=== PATIENT | female | born 1965 | race Caucasian/White ===

== ENCOUNTER 2023-06-22 08:55 | Outpatient (OUT) | payer BC, SELFPAY ==
--- NOTE | 2023-06-22 09:05 | MM_ITS ---
Patient Name: DORIS AVALOS MR#: [id number] : 1965 Exam Date: 06/22/2023 Ordering Doctor: DR RIVKA ROBERT D.O. RADIOLOGY REPORT PROCEDURE: MM TOMOSYNTHESIS SCREENING BI COMPARISON: MG MAMM SCREEN 3D IRIS CAD, 06/21/2022. MG MAMM SCREEN 3D IRIS CAD, 06/18/2021. MG MAMM SCREEN IRIS W CAD, 06/15/2020. MG MAMM IRIS SCRN W CAD DIG, 04/16/2013. INDICATIONS: Screening Calculator Name NCI Breast Cancer Risk Assessment Tool 5 Year Breast Cancer Risk 1.20% Lifetime Breast Cancer Risk 7.90% Personal Breast Cancer No Personal Ovarian Cancer No Treatments None Family Cancers None LOCATION: [facility] BREAST COMPOSITION: Scattered areas fibroglandular density. FINDINGS: DIAGNOSTIC CATEGORY 2--BENIGN FINDING: RIGHT BREAST: No significant suspicious finding. Stable benign-appearing lymph node. No significant change has occurred. LEFT BREAST: No significant suspicious finding. No significant change has occurred. RECOMMENDATIONS: ROUTINE MAMMOGRAM AND CLINICAL EVALUATION IN 12 MONTHS. PLEASE NOTE: A NORMAL MAMMOGRAM DOES NOT EXCLUDE THE POSSIBILITY OF BREAST CANCER. A CLINICALLY SUSPICIOUS PALPABLE LUMP SHOULD BE BIOPSIED. Dictated by: Shun Pinzon M.D. on 06/22/2023 at 12:09 Approved by: Shun Pinzon M.D. on 06/22/2023 at 12:11
== END 2023-06-22 08:56 | disposition home or self-care (01) ==
LOC: MAMMO 08:55
PROVIDERS: PCP Internal Medicine; Visit Provider Internal Medicine
DX: Z12.31 Encounter for screening mammogram for malignant neoplasm of breast (principal)
CPT/HCPCS: 77063; 77067

== ENCOUNTER 2024-06-28 11:36 | Outpatient (OUT) | payer BC, SELFPAY ==
--- NOTE | 2024-06-28 11:39 | MM_ITS ---
Patient Name: DORIS AVALOS MR#: [id number] : 1965 Exam Date: 06/28/2024 Ordering Doctor: DR RIVKA ROBERT D.O. RADIOLOGY REPORT PROCEDURE: MM TOMOSYNTHESIS SCREENING BI COMPARISON: MM TOMOSYNTHESIS SCREENING BI, 06/22/2023. MG MAMM SCREEN 3D IRIS CAD, 06/21/2022. MG MAMM SCREEN 3D IRIS CAD, 06/18/2021. MG MAMM IRIS SCRN W CAD DIG, 04/16/2013. INDICATIONS: Screening Calculator Name NCI Breast Cancer Risk Assessment Tool 5 Year Breast Cancer Risk 1.30% Lifetime Breast Cancer Risk 7.70% Personal Breast Cancer No Personal Ovarian Cancer No Treatments None Family Cancers None LOCATION: [facility] BREAST COMPOSITION: There are scattered areas of fibroglandular density. FINDINGS: DIAGNOSTIC CATEGORY 1--NEGATIVE. RIGHT BREAST: No significant suspicious finding. No significant change has occurred. LEFT BREAST: No significant suspicious finding. No significant change has occurred. RECOMMENDATIONS: ROUTINE MAMMOGRAM AND CLINICAL EVALUATION IN 12 MONTHS. PLEASE NOTE: A NORMAL MAMMOGRAM DOES NOT EXCLUDE THE POSSIBILITY OF BREAST CANCER. A CLINICALLY SUSPICIOUS PALPABLE LUMP SHOULD BE BIOPSIED. Dictated by: Shun Pinzon M.D. on 07/01/2024 at 15:30 Approved by: Shun Pinzon M.D. on 07/01/2024 at 15:35
--- OUTSIDE RECORDS SUMMARY | 2024-06-28 11:48 | XMS_ITS | CCD ---
Author Organization [facility] Care Team Providers Care Sales Contractor Name Role Phone MER PIERRE Unavailable Unavailable CAROLESILJONATHAN Unavailable Unavailable VALONE, DR TINEO Admitting Unavailable VALONE, DR TINEO Attending Unavailable VALONE, DR TINEO Primary Care Unavailable VALONE, DR TINEO Consulting Unavailable ZIEBCASTILLO, DR SHUN Gaxiola Consulting Unavailable Alishaone, JR Juan Carlos Godfrey Primary Care Provider MD Kevin Rizzo Attending Provider [phone] Juan Carlos Robert Primary Care Unavailable Kevin Rizzo Attending Unavailable Kevin Rizzo Admitting Unavailable Problems Active Problems Problem Classification Problem Date Documented Da te Episodic/Chronic Residual codes; unclassified (1 source) Bilateral lower limb edema; Translations: [Localized edema] 04-29-2024 Episodic Residual codes; unclassified (1 source) Localized edema; Translations: [Edema] 04-29-2024 Episodic Varicose veins of lower extremity (3 sources) Varicose veins of lower extremity; Translations: [Varicose veins of bilateral lower extremities with other complications] Onset: 05-06-2024 04-29-2024 Episodic Past or Other Problems Problem Classification Problem Date Documented Date Episodic/Chronic Immunizations and screening for infectious disease (2 sources) Encounter for screening for human papillomavirus (HPV); Translations: [Encounter for screening for human papillomavirus (HPV)] Onset: 07-13-2017 Episodic Medical examination/evaluatio n (2 sources) Encounter for gynecological examination (general) (routine) without abnormal findings; Translations: [Encounter for gynecological examination (general) (routine) without abnormal findings] Onset: 07-13-2017 Episodic Other screening for suspected conditions (not mental disorders or infectious disease) (4 sources) Encounter for screening mammogram for malignant neoplasm of breast; Translations: [ENC SCR MAMMO MALIG NEOPLASM BREAST] Onset: 12-20-2022 Episodic Results Test Name Value Interpretation Reference Range Facility US venous duplex LE BIon US venous duplex LE BI [facility] [place] [address] [place] [address] Ultrasound Report Signed Patient: Geri Davenport MR#: [id number] : 1965 Acct:[id number] Age/Sex: 59 / F ADM Date: 05/06/24 Loc: Room: Type: [facility] Attending Dr: Kevin Rizzo MD Ordering Provider: Kevin Rizzo MD Date of Service: 05/06/24 US/US venous duplex LE BI: I83.813 - Varicose veins of bilateral lower extremities w... Copies to: Kevin Rizzo MD Bilateral lower extremity full functional venous duplex examination Indication for study: Painful varicose veins PROCEDURE: Color-flow duplex scanning is used to interrogate the venous anatomy of both lower extremities. There is no evidence for deep vein thrombosis. In both legs the common femoral vein, femoral vein, and popliteal vein show good compressibility, color-flow, and augmentation. In the patient's right leg there is severe venous valvular incompetence with Valsalva with greater than 5 seconds of reflux at the saphenofemoral junction emptying into the greater saphenous vein the right greater saphenous vein is markedly dilated at 12 mm below the saphenofemoral junction and remains 7 mm to level of mid thigh. At that point and gives rise to extensive varicosities that are 2 to 3 mm in diameter. The remaining saphenous vein throughout the rest of the limb is normal in size. The right lesser saphenous vein is normal in size. There is no significant reflux in the left lower extremity at rest. Left greater saphenous vein is normal in size. US/US venous duplex LE BI IMPRESSION: No evidence for deep vein thrombosis in either leg. Severe saphenofemoral incompetence is noted in the right leg which results in massive dilation of the greater saphenous vein and extensive secondary varicosities. No significant venous valvular incompetence is noted in the left leg. Impression dictated by: Kevin Rizzo M.D.05/09/2024 9:38 AM Dictation Location: [id number] Tech: Catherine Mcduffie Transcribed By: RISHABH 05/09/2438 Dictated By: Kevin Rizzo MD 05/07/24 1029 Signed By: 05/09/24937 Normal [facility] Physician [facility] MG MAMM SCREEN 3D IRIS CADon 06-21-2022 MG MAMM SCREEN 3D IRIS CAD Patient: GERI DAVENPORT Exam Date: 06/21/2022 : 1965 Gender:F Ordering : DR JUAN CARLOS ROBERT D.O. Admission #: [id number] Family : Order #: [id number] CLICK HERE TO VIEW EXAM RADIOLOGY REPORT PROCEDURE: MAMMOGRAM SCREENING 3D BILATERAL CAD COMPARISON: MG MAMM SCREEN IRIS W CAD, 06/15/2020. MG MAMM SCREEN IRIS W CAD, 06/12/2019. DIGITIZED_MAMMO, 12/25/2003. MG MAMM SCREEN 3D IRIS CAD, 06/18/2021. INDICATIONS: Screening mammography Calculator Name NCI Breast Cancer Risk Assessment Tool 5 Year Breast Cancer Risk 1.20% Lifetime Breast Cancer Risk 8.10% Personal Breast Cancer No Personal Ovarian Cancer No Treatments None Family Cancers None LOCATION: [facility] BREAST COMPOSITION: Scattered areas fibroglandular density. FINDINGS: DIAGNOSTIC CATEGORY 2--BENIGN FINDING: RIGHT BREAST: No significant suspicious finding. Stable, benign appearing lymph node within central breast. No significant change has occurred. LEFT BREAST: No significant suspicious finding. No significant change has occurred. RECOMMENDATIONS: ROUTINE MAMMOGRAM AND CLINICAL EVALUATION IN 12 MONTHS. PLEASE NOTE: A NORMAL MAMMOGRAM DOES NOT EXCLUDE THE POSSIBILITY OF BREAST CANCER. A CLINICALLY SUSPICIOUS PALPABLE LUMP SHOULD BE BIOPSIED. Dictated by: Shun Pinzon M.D. on 06/22/2022 at 09:45 Approved by: Shun Pinzon M.D. on 06/22/2022 at 09:53 Normal [facility] HPV DNA High Riskon 07-15-19 18 HPV Interp Normal [facility] Comment on above: Result Comment: This test amplifies and detects DNA of 14 high-risk HPV types associated with cervical cancer and its precursor lesions (HPV types 16,18, 31, 33, 35, 39, 45, 51, 52, 56, 58, 59, 66, and 68).Sensitivity may be affected by specimen collection methods, stage of infection, and the presence of interfering substances.Results should be interpreted in conjunction with other available laboratory and clinical data.A negative high-risk HPV result does not exclude the possibility of future cytologic HSIL or underlying CIN2-3 or cancer.This test is intended for medical purposes only and is not valid for the evaluation of suspected sexual abuse or for other forensic purposes.Performed at [address] [address] Performed By: #### H PVH ####[address] [address] HPV Type 16 Not Detected Normal [facility] Comment on above: Performed By: #### HPVH ####[address] [address] HPV Type 18 Not Detected Normal [facility] Comment on above: Performed By: #### HPVH ####[address] [address] Other High Risk HPV Not Detected Normal [facility] Comment on above: Performed By: #### HPVH ####[address] [address] HPV DNA High Riskon 07-14-19 18 HPV Sample .THIN PREP Normal [facility] Comment on above: Performed By: #### HPVH ####[address] [address] Source CERVICAL MATERIAL Normal [facility] Comment on above: Performed By: #### HPVH ####[address] [address] Cytologyon 07-13-2017 Cytology (NOTE)[id number]ORATORIESCONSULTING PATHOLOGISTS [facility] [address] [place] [phone] Fax: GYNECOLOGIC CYTOLOGY REPORTPatient Name: GERI DAVENPORTMR#: [id number] #[id number]:1: Cervical material, (ThinPrep vial, Imaging-assisted review)Clinical XgrcyooO60.419 Routine reporting manager exam without abnormal findingsCo-Test: ThinPrep Pap with high risk HPV ygewbtqA92.51 Encounter for screening for HPVLMP: 06/08/17INTERPRETATIONCervic al material, (ThinPrep vial, Imaging-assisted review):Specimen Adequacy: Satisfactory for evaluation. - Endocervical/transformation zone component present.Descriptive Diagnosis: Negative for intraepithelial lesion or malignancy.Comments: High Risk HPV testing was ordered.Fishing Manager: JOE Galeana(ASCP)Electronically Signed Outkvng/07/21/2017Procedure/ AddendumHPV Procedure Report Date Ordered: 07/14/2017 Status:Signed Out Date Complete: 07/14/2017 By: JOE Taylor(ASCP) Date Reported: 07/24/2017 INTERPRETATIONRoche HPV DNA High Risk HPV Sample Thin Prep (Ref Range)HPV Type 16 Not Detected (NotDetected)HPV Type 18 Not Detected (NotDetected)Other High Risk HPV Not Detected (Not Detected) This test amplifies and detects DNA of 14 high-risk HPV typesassociated with cervical cancer and its precursor lesions (HPV types16, 18, 31, 33, 35, 39, 45, 51, 52, 56, 58, 59, 66, and 68). Sensitivity may be affected by specimen collection methods, stage ofinfection, and the presence of interfering substances. Results shouldbe interpreted in conjunction with other available laboratory andclinical data. A negative high-risk HPV result does not exclude thepossibility of future cytologic HSIL or underlying CIN2-3 or cancer.This test is intended for medical purposes only and is not valid forthe evaluation of suspected sexual abuse or for other forensicpurposes. Normal [facility] Vital Signs Date Time Vital Sign Value Performing Clinician Ashlyni abel 04-29-2024 09:46-0400 Body height 168.91 cm [facility] 04-29-2024 09:46-0400 Body mass index (BMI) [Ratio] 27.9 kg/m2 [facility] 04-29-2024 09:46-0400 Body temperature 97.8 [degF] [facility] 04-29-2024 09:46-0400 Body weight 79.83 kg [facility] 04-29-2024 09:46-0400 Diastolic blood pressure 84 mm[Hg] [facility] 04-29-2024 09:46-0400 Heart rate 72 /min [facility] 04-29-2024 09:46-0400 Respiratory rate 16 /min [facility] 04-29-2024 09:46-0400 SaO2% (BldA) [Mass fraction] 98 % [facility] 04-29-2024 09:46-0400 Systolic blood pressure 126 mm[Hg] [facility] Encounters Encounter Date Encounter Type Care Provider Facility Start: 05-06-2024 End: 05-06-2024 Patient encounter procedure JR Juan Carlos Robret Work Phone: [facility] [place] Work Phone: Start: 05-06-2024 End: 05-06-2024 ambulatory JR Juan Carlos Robert Work Phone: [facility] Work Phone: Start: 04-29-2024 End: 04-29-2024 ambulatory [facility] Work Phone: Start: 04-29-2024 End: 04-29-2024 Patient encounter procedure [facility] Work Phone: Start: 06-21-2022 End: 06-22-[address] JUAN CARLOS ROBERT Facility:[facility] Start: 07-13-2017 End: 07-14-2017 Ambulatory [facility] Procedures Date Procedure Procedure Detail Performing Clinician Start: 07-13-2017 Cytopathology proced ure, preparation of smear, genital source MER PIERRE Plan of Treatment Date Care Activity Detail Author Start: 05-06-2024 Duplex scan of lower limb veins US venous duplex LE BI [facility] Payers Date Payer Category Payer Self-pay 2024 Unknown [id number] 2014 Unknown [id number] 1965 Unknown [id number] 1957 Unknown [id number] Unknown [id number] Social History Date Type Detail Facility Start: 04-29-2024 End: 04-29-2024 Tobacco smoking status NHIS Never smoked tobacco (finding) [facility] Start: 1965 Sex Assigned At Female F [facility] Evaluation note Note Date & Type Note Facility Evaluation note No assessment information availa ble [facility] Work Phone: Evaluation note Note Date & Type Note Facility Evaluation note Diagnosis Onset Date Bilateral lower extremity edema acute Symptomatic varicose veins o f both lower extremities acute [facility] Work Phone: Summary Purpose Family History No Family History Records FoundNo Family History Records FoundNo Family History Records Found Advance Directives No Advanced Directives Records Found Advance Directive Response Recorded Date/ Time Advance Directives No April 04, 2024 5:35pm Advance Directive Response Recorded Date/ Time Advance Directives No April 04, 2024 4:35pm Chief Complaint and Reason for Visit Chief Complaint Ref by Dr. Shannen cary ricose veins Chief Complaint Ref by Dr. Shannen cary ricose veins I83.813 Reason for Visit Bilateral lower extr emity edema Symptomatic varicose veins of both lower extremities Additional Source Comments INFORMATION SOURCE (unrecogn ized section and content) DATE CREATED AUTHOR 12/25/2017 [facility] DATE CREATED AUTHOR AUTHOR'S ORGANIZ ATION 10/04/2022 [facility] DATE CREATED AUTHOR AUTHOR'S ORGANIZ ATION 05/11/2024 [facility] Care Teams (unrecognized sec tion and content) Team Status: Active Member Role Status Dates Juan Carlos Robert JR DO Primary Care Provider Active Team Status: Inactive Member Role Status Dates Kevin Rizzo MD Attending Provider Active S tart: April 29, 2024 End: April 29, 2024 Juan Carlos Robert JR DO Primary Care Provider Active Start: April 29, 2024 End: April 29, 2024 Team Status: Inactive Member Role Status Dates Juan Carlos Robert JR DO Primary Care Provider Active Start: May 06, 2024 End: May 06, 2024 Kevin Rizzo MD Attending Provider Active S tart: May 06, 2024 End: May 06, 2024 Goals (unrecognized section and content) Goals may be documented in a n alternate sectionGoals may be documented in an alternate section FOR RECORDS PERTAINING TO PATIENTS WHO ARE OR HAVE BEEN ENROLLED IN A CHEMICAL DEPENDENCY/SUBSTANCEABUSE PROGRAM, SOME INFORMATION MAY BE OMITTED. This clinical summary was aggregated from multiple sources. Caution should be exercised in using it in the provision of clinical care. This summary normalizes information from multiple sources, and as a consequence, information in this document may materially change the coding, format and clinical context of patient data. In addition, data may be omitted in some cases. CLINICAL DECISIONS SHOULD BE BASED ON THE PRIMARY CLINICAL RECORDS. [facility] [employer] provides no warranty or guarantee of the accuracy or completeness of information in this document.
== END 2024-06-28 11:37 | disposition home or self-care (01) ==
LOC: MAMMO 11:36
PROVIDERS: PCP Internal Medicine; Visit Provider Internal Medicine
DX: Z12.31 Encounter for screening mammogram for malignant neoplasm of breast (principal)
CPT/HCPCS: 77063; 77067

== ENCOUNTER 2025-06-30 09:54 | Outpatient (OUT) | payer BC, SELFPAY ==
--- NOTE | 2025-06-30 09:57 | MM_ITS ---
Patient Name: DORIS AVALOS MR#: [id number] : 1965 Exam Date: 06/30/2025 Ordering Doctor: DR RIVKA ROBERT D.O. RADIOLOGY REPORT PROCEDURE: MM TOMOSYNTHESIS SCREENING BI COMPARISON: MM TOMOSYNTHESIS SCREENING BI, 06/28/2024. MM TOMOSYNTHESIS SCREENING BI, 06/22/2023. MG MAMM SCREEN 3D IRIS CAD, 06/21/2022. MG MAMM IRIS SCRN W CAD DIG, 04/16/2013. INDICATIONS: Screening Calculator Name NCI Breast Cancer Risk Assessment Tool 5 Year Breast Cancer Risk 1.30% Lifetime Breast Cancer Risk 7.60% Personal Breast Cancer No Personal Ovarian Cancer No Treatments None Family Cancers None LOCATION: [facility] BREAST COMPOSITION: There are scattered areas of fibroglandular density. FINDINGS: RIGHT BREAST: No significant suspicious finding. LEFT BREAST: No significant suspicious finding. DIAGNOSTIC CATEGORY 1--NEGATIVE. RECOMMENDATIONS: ROUTINE MAMMOGRAM AND CLINICAL EVALUATION IN 12 MONTHS. Dictated by: Kevin Azul DO on 06/30/2025 at 12:08 Approved by: Kevin Azul DO on 06/30/2025 at 12:15
--- OUTSIDE RECORDS SUMMARY | 2025-06-30 09:58 | XMS_ITS | Clinical Summary ---
Author Organization [facility] Address [address] [place] [address] Care Team Providers Care Farm Operations Technical Director Name Role Phone Unavailable Primary Care Provider Unavailabl e Social History Tobacco UseTypesPacks/DayYears UsedDateSmoking Tobacco: Never Assessed CommentsUnknownSex and Gender InformationValueDate RecordedSex Assigned at Not on fileLegal MquLkgjps87/15/2023 8:04 PM EDTGender IdentityNot on fileSexual OrientationNot on file Plan of Treatment Not on file
--- OUTSIDE RECORDS SUMMARY | 2025-06-30 09:58 | XMS_ITS | Clinical Summary ---
Author Organization [email or web address] Address [id number] [place] [address] Care Team Providers Care Fruit Loader Machine Operator Name Role Phone Ruddy Castillo DO Primary Care Provider Unavail able Allergies No known active allergies Medications No known medications Active Problems No known active problems Social History Tobacco UseTypesPacks/DayYears UsedDateSmoking Tobacco: NeverSmokeless Tobacco: NeverChildcareAnswerDate IjbwrcsnDukrzukmaHxeatba97/12/2019EmploymentAnswerDate WjauzenyPqxqrsnrziEbmsskz84/12/2019Purpose - LifeAnswerDate RecordedPurpose and direction in ercyOycwrld91/11/2021CommentsNoSex and Gender Information ValueDate RecordedSex Assigned at BirthNot on fileLegal MusTyjhoi52/06/2015 11:44 AM EDTGender IdentityNot on fileSexual OrientationNot on file Last Filed Vital Signs Vital SignReadingTime TakenCommentsBlood Qykxpmzu39/6110 10:58 AM EDT Qgczu5495 10:58 AM EDTTemperature--Respiratory Gogx0910 10:58 AM EDTOxygen Vtpjhlrini65%04/06/2017 10:58 AM EDTInhaled Oxygen Concentration-- Nruqxy78 kg (183 lb)04/06/2017 9:57 AM VZULpkdvw481.9 cm (5' 6.5 )04/06/2017 9:57 AM EDTBody Mass Index29.0904/06/2017 9:57 AM EDT Plan of Treatment Not on file Medical Devices Not on file Insurance * Guarantor: Geri Davenport TypeRelation to PatientDate of BirthPhone Billing AddressPersonal/QgatslRnbs1965 [facility] [place] [address] Care Teams Team MemberRelationshipSpecialtyStart DateEnd Date Ruddy Castillo DO PCP - GeneralFamily Qqinlpwk96/5/17
--- OUTSIDE RECORDS SUMMARY | 2025-06-30 09:59 | XMS_ITS | CCD ---
Author Organization [facility] CliniSyma Care Team Providers Care Superintendent [employer] Name Role Phone MER PIERRE Unavailable Unavailable WASSILJONATHAN Unavailable Unavailable VALONE, DR TINEO Admitting Unavailable VALONE, DR TINEO Attending Unavailable VALONE, DR TINEO Primary Care Unavailable VALONE, DR TINEO Consulting Unavailable ZIEBER, DR SHUN Gaxiola Consulting Unavailable AlishaoneJR Juan Carlos Primary Care Provider MD Kevin Rizzo Attending Provider Juan Carlos Robert JR Primary Care Provider Kevin Rizzo MD Attending Provider [phone] Kevin Rizzo Attending Unavailable Juan Carlos Robert Primary Care Unavailable Kevin Rizzo Admitting Unavailable Juan Carlos Robert Primary Care Unavailable Kevin Rizzo Admitting Unavailable Kevin Rizzo Attending Unavailable Problems Active Problems Problem ClassificationProblemDateDocumented DateEpisodic/ChronicResidual codes; unclassified (3 sources)Bilateral lower limb edema; Translations: [Localized edema]04-29-2024 EpisodicResidual codes; unclassified (1 source)Localized edema; Translations: [Edema]19-47-0638UdwqimfvXhfpqlnc veins of lower extremity (9 sources)Varicose veins of lower extremity; Translations: [Varicose veins of bilateral lower extremities with other complications]Onset: [id number] Episodic Past or Other Problems Problem ClassificationProblemDateDocumented DateEpisodic/ChronicImmunizations and screening for infectious disease (2 sources)Encounter for screening for human papillomavirus (HPV); Translations: [Encounter for screening for human papillomavirus (HPV)]Onset: 07-13-2017 EpisodicMedical examination/evaluation (2 sources)Encounter for gynecological examination (general) (routine) without abnormal findings; Translations: [Encounter for gynecological examination (general) (routine) without abnormal findings]Onset: 14-03-8302ErtixwlkFlzdq screening for suspected conditions (not mental disorders or infectious disease) (4 sources)Encounter for screening mammogram for malignant neoplasm of breast; Translations: [ENC SCR MAMMO MALIG NEOPLASM BREAST]Onset: 39-64-7635Okheaefg Results Test NameValueInterpretationReference RangeFacilityUS venous duplex LE RTon 92-86-7310ZW venous duplex LE [facility]Mer[facility] [address] [place] [address] Ultrasound Report Signed Patient: Geri Davenport MR#: [id number] : 1965 Acct:[id number] Age/Sex: 59 / F ADM Date: 08/06/24 Loc: [facility] Room: Type: [facility] Attending Dr: Kevin Rizzo MD Ordering Provider: Kevin Rizzo MD Date of Service: 08/06/24 US/US venous duplex LE RT: I83.811 - Varicose veins of right lower extremity with pain Copies to: Kevin Rizzo MD Right lower extremity full functional venous duplex examination Indication for study: Follow-up after right saphenous vein ablation PROCEDURE: Color-flow duplex scanning is used to interrogate the venous anatomy of the right lower extremity. The right common femoral vein, femoral vein, and popliteal vein show good compressibility, color-flow, and augmentation. The right greater saphenous vein is been successfully closed 2.8 cm from the saphenofemoral junction down to the proximal calf. There is persistent reflux for greater than 5 seconds at the saphenofemoral junction. US/US venous duplex LE RT IMPRESSION: No evidence for deep vein thrombosis in the right leg. Successful closure the right greater saphenous vein. Persistent reflux is noted at the saphenofemoral junction. Impression dictated by: Kevin Rizzo M.D.08/13/2024 1:11 PM Dictation Location: [place] [address] Tech: Angelica Gordon Transcribed By: RISHABH 08/13/24 1311 Dictated By: Kevin Rizzo MD 08/13/24 1310 Signed By: 08/13/24 1311[facility] Physician GroupUS venous duplex LE BIon 41-24-7701DJ venous duplex LE [facility] Main [place] [address] [place], [place] [id number] Ultrasound Report Signed Patient: Geri Davenport MR#: [id number] : 1965 Acct:[id number] Age/Sex: 59 / F ADM Date: 05/06/24 Loc: Room: Type: [facility] Attending Dr: Kevin Rizzo MD Ordering Provider: Kevin iRzzo MD Date of Service: 05/06/24 US/US venous [...] Kevin Rizzo M.D.05/09/2024 9:38 AM Dictation Location: [place] [address] Tech: Catherine Mcduffie Transcribed By: RISHABH 05/09/24 0938 Dictated By: Kevin Rizzo MD 05/07/24 1029 Signed By: 05/09/24 0938[facility] M[facility] SCREEN 3D IRIS CADon 58-50-5479WH MAMM SCREEN 3D IRIS CADPatient: GERI DAVENPORT Exam Date: 06/21/2022 : 1965 Gender:F Ordering : DR JUAN CARLOS ROBERT D.O. Admission #: [id number] Family : Order #: [id number] CLICK HERE TO VIEW EXAM RADIOLOGY REPORT [...] No Treatments None Family Cancers None LOCATION: [facility] BREAST COMPOSITION: Scattered areas fibroglandular density. FINDINGS: [...] by: Shun Pinzon M.D. on 06/22/2022 at 09:53[facility] HospitalHPV DNA High Riskon 33-91-1681QMU [facility] Comment on above:Result Comment: This test amplifies and detects DNA of 14 high- risk HPV types associated with cervical cancer and [...] is intended for medical purposes only and isnot valid for the evaluation of suspected sexual abuse or for other forensic purposes.Performed at [address] [address] ([phone] By: #### HPVH ####[address] [phone] Type 16Not DetectedNormalCorey HospitalComment on above:Performed By: #### HPVH ####[address] [phone] Type 18Not DetectedNormalNOTCleveland Clinic Medina Hospital HospitalComment on above:Performed By: #### HPVH ####[address] [phone] High Risk HPVNot DetectedNormalUniversity Hospitals [facility] HospitalComment on above:Performed By: #### HPVH ####[address] [phone] DNA High Riskon 47-25-9819QNV Sample.THIN PREPNormalOhiohealth Arthur [facility] Cancer Center HospitalComment on above:Performed By: #### HPVH ####[address] [phone] MATERIALNormalOhiohealth [facility] Center HospitalComment on above:Performed By: #### HPVH ####[address] [phone] 92-75-4697Sbzuhzxi(NOTE)[id number] LABORATORIESCONSULTING PATHOLOGISTS CORPORATIONANATOMIC RKRBQFPMP[address] [place], [place] [address]t. [place], [place] [phone] Fax: GYNECOLOGIC CYTOLOGY REPORTPatient Name: GERI DAVENPORTMR#: [id number] #[id number]:1: Cervical material, (ThinPrep vial, Imaging-assisted review)Clinical XwjxxbeY72.419 Routine member certification manager exam without abnormal findingsCo-Test: ThinPrep Pap with high risk HPV xwwmyirD10.51 Encounter for screening for HPVLMP: 06/08/17INTERPRETATIONCervical material, (ThinPrep vial, Imaging-assisted review):Specimen Adequacy: Satisfactory for evaluation. - Endocervical/transformation zone component present.Descriptive Diagnosis: Negative for intraepithelial lesion or malignancy.Comments: High Risk HPV testing was ordered.Line Tender Flakeboard: JOE Galeana(ASCP)Electronically Signed Outkvng/07/21/2017Procedure/AddendumHPV Procedure Report Date Ordered: 07/14/2017 Status:Signed Out Date Complete: 07/14/2017 By: JOE Taylor(ASCP) Date Reported: 07/24/2017 INTERPRETATIONRoche HPV DNA High Risk HPV Sample Thin Prep (Ref Range)HPV Type 16 Not Detected(NotDetected)HPV Type 18 Not Detected (NotDetected)Other High Risk HPV Not Detected (Not Detected) This test amplifies and detects DNA of 14 high-risk HPV typesassociated with cervical cancer and its precursor lesions (HPV types16, 18, 31, 33, 35, 39, 45, 51, 52, 56, 58, 59, 66, and 68). Sensitivity may be affected by specimen collection methods, stage ofinfection, and the presence of interferingsubstances. Results shouldbe interpreted in conjunction with other available laboratory andclinicaldata. A negative high-risk HPV result does not exclude thepossibility of future cytologic HSIL or underlying CIN2-3 or cancer.This test is intended for medical purposes only and is not valid forthe evaluation of suspected sexual abuse or for other forensicpurposes.NormalMercy Hospital For Special Care Vital Signs Date TimeVital SignValuePerforming ZygmeskywIkqwcfkp29-93-4108 11:03-0500Body vbxhizinquh98.1 [degF]Juan Carlos Robert JR Work Phone: [phone] [place], [place] 544[address]2-17-2025 11:03-0500 Diastolic blood xxaapqfq43 mm[Hg]Juan Carlos Robert JR Work Phone: [phone] [place], [place] [address]2-17-2025 11:03-0500 Heart rate68 /minJuan Carlos Robert JR Work Phone: [phone] [place], [place] [address]2-17-2025 11:03-0500 SaO2% (BldA) [Mass fraction]98 %Juan Carlos Robert JR Work Phone: [phone] [place], [place] [address]2-17-2025 11:03-0500 Systolic blood gettusao457 mm[Hg]Juan Carlos Robert JR Work Phone: [phone]11-18-2024 10:05-0500 Body .64 cmCharronak Robert JR Work Phone: [phone] [place], [place] 544[address]11-18-2024 10:05-0500 Body mass index (BMI) [Ratio]27.9 kg/r9KwjechsJuan Carlos Robert JR Work Phone: [phone] [place], [place] [address]11-18-2024 10:05-0500 Body gcushlsmvaw99.9 [degF]Juan Carlos Robert JR Work Phone: [phone] [place], [place] [address]11-18-2024 10:05-0500 Body audvpl87.47 kgCharronak Robert JR Work Phone: [phone] [place], [place] [address]11-18-2024 10:05-0500 Diastolic blood tkqhsilt41 mm[Hg]Juan Carlos Robert JR Work Phone: [phone])256-[address] [place], [place] 544[address]11-18-2024 10:05-0500 Heart rate68 /minJuan Carlos Britoone JR Work Phone: [phone] [place], [place] [address]11-18-2024 10:05-0500 SaO2% (BldA) [Mass fraction]97 %Juan Carlos Robert JR Work Phone: [phone] [place], [place] [address]11-18-2024 10:05-0500 Systolic blood yldfqetz664 mm[Hg]Juan Carlos Robert JR Work Phone: [facility]10-28-2024 09:46-0400 Body coxcuz131.91 cmDiley Ridge Medical Center10-28-2024 09:46-0400Body mass index (BMI) [Ratio]27.9 kg/a7WvzlnmulnDiley Ridge Medical Center10-28-2024 09:46-0400Body djnzcutdsbu03.8 [degF][facility]10-28-2024 09:46-0400Body .83 kgDiley Ridge Medical Center10-28-2024 09:46-0400Diastolic blood wmfnedji35 mm[Hg][facility] 04-29-2024 09:46-0400Heart rate72 /[facility] 04-29-2024 09:46-0400Respiratory rate16 /[facility] 04-29-2024 09:46-9918KkE8% (BldA) [Mass fraction]98 %[facility]10-28-2024 09:46-0400Systolic blood amtevwac114 mm[Hg][facility] Encounters Encounter DateEncounter TypeCare ProviderFacilityStart: 08-19-2024 End: 50-47-8452epbnuhpxhxByhbtaf L Valone JR Work Phone: [facility] Work Phone: Start: 08-19-2024 End: 64-99-3260Jmrxgth encounter procedureChamacario Robert JR Work Phone: [facility] S[facility] Work Phone: Start: 08-06-2024 End: 17-44-4903Soxzuhc encounter procedureChamacario Robert JR Work Phone: [facility] VascularStart: 08-06-2024 End: 63-53-7864kevfphwxvtUwrowop L Valone JR Work Phone: [facility] Work Phone: Start: 08-02-2024 End: 96-50-9911Diakfvt encounter procedureJuan Carlos Robert JR Work Phone: [facility] S[facility] Work Phone: Start: 06-28-2024 End: 96-56-4240Ravklhz encounter procedureJuan Carlos Robert JR Work Phone: [facility] Vascular Surg Work Phone: Start: 05-20-2024 End: 86-90-0219Dkgnnrp encounter procedureJuan Carlos Robert JR Work Phone: [facility] S[facility] Work Phone: Start: 05-06-2024 End: 84-50-0325Ltkhdaz encounter procedureJR Juan Carlos Robert Work Phone: [facility] [place] Work Phone: Start: 05-06-2024 End: 59-62-5678mibnbsaezsJW Juan Carlos Robert Work Phone: [facility] Work Phone: Start: 04-29-2024 End: 07-82-9059oldkapyunaDsxjxiiwvWright-Pat[facility] Center Work Phone: Start: 04-29-2024 End: 69-38-7819Pnpzmuf encounter procedureB[facility]y [facility] Work Phone: Start: 06-21-2022 End: 63-74-0513epjqermzxnLSBarbara ROBERTFacility:O8Gobex: 07-13-2017 End: 54-36-5108NusovvftfuENQSZRCKCleveland Clinic [facility]inte Hospital Procedures DateProcedureProcedure DetailPerforming ClinicianStart: 53-89-7478Tgnvgm scan of lower limb veinsJuan Carlos Robert JR Work Phone: Start: 57-78-1022Fyuaxayixugbv procedure, preparation of smear, genital sourceKATHLEEN FRIES Plan of Treatment DateCare ActivityDetailAuthorStart: 82-22-4276Oneqvc scan of lower limb veinsUS venous duplex LE [facility] Medical Centertart: 17-14-5140PD Lower extremity vein - rightAultman Alliance Community Hospitaltart: 89-77-9736Nksduy scan of lower limb veinsUS venous duplex [facility] Payers DatePayer CategoryPayerPolicy [id number] [id number] [id number] Social History DateTypeDetailFacilityStart: 04-29-2024 End: 31-75-8246Pvysuow smoking status NHISNever smoked tobacco (finding) [facility] Hospitaltart: 27-93-9312Soe Assigned At [facility] Centertart: 61-61-4935JpmWdvwcha sex unknown (finding)[facility] Hospitaltart: 40-69-6394GsxLgeimm (finding) [facility] Evaluation note 06-28-2024 Note Date & UlqpVxdiSwpvnbge36-26-1016 Evaluation note* Diagnosis Onset Date Resolution Status Admit Date Symptomatic varicose veins of both lower extremities acuteDecember 2023 8:40am [facility] Work Phone: Evaluation note 05-20-2024 Note Date & JiutEbopNdxwdbjd28-02-3609 Evaluation note* Diagnosis Onset Date Resolution Status Admit Date Symptomatic varicose veins of both lower extremities acuteNovember 2023 9:46amSymptomatic varicose veins of both lower extremitiesacuteDecember 2023 8:40am [facility] Work Phone: Evaluation note Note Date & TypeNoteFacilityEvaluation noteNo assessment information available [facility] Work Phone: Evaluation note Note Date & TypeNoteFacilityEvaluation note* Diagnosis Onset Date Resolution Status Bilateral lower extremity edema acuteSymptomatic varicose veins of both lower extremitiesacute [facility] Work Phone: Summary Purpose Family History No Family History Records FoundNo Family History Records FoundNo Family History Records Found Advance Directives Advance Directive Response Recorded Date/ Time Advance Directives No April 04, 2024 5:35pm Advance Directive Response Recorded Date/ Time Advance Directives No April 04, 2024 4:35pm Chief Complaint and Reason for Visit Chief Complaint Ref by Dr. Shannen cary ricose veins Chief Complaint Ref by Dr. Shannen cary ricose veins I83.813Reason for VisitBilateral lower extremity edema Symptomatic varicose veins of both lower extremities Chief Complaint Admit Date To go over FF; FF done at [facility] May 20, 2024 9:46am EVLT right leg June 28, 2024 8:40am EVLT rt leg August 02, 2024 9 :33am I83.811 s/p EVLT RT LE August 06 7:47am Reason for Visit Admit Date Symptomatic varicose veins of both lower extremities May 20, 2024 9:46am Symptomatic varicose veins of both lower extremities June 28, 2024 8:40am Chief Complaint Admit Date EVLT right leg June 28, 2024 8:40am EVLT rt leg August 02, 2024 9 :33am I83.811 s/p EVLT RT LE August 06 7:47am 2 1/2 WK S/P EVLT RIGHT LEG; U/S 08/06/24 August 19, 2024 11:00am Reason for Visit Admit Date Symptomatic varicose veins of both lower extremities June 28, 2024 8:40am Additional Source Comments INFORMATION SOURCE (unrecogn ized section and content) DATE CREATED AUTHOR 12/25/2017 [facility] DATE CREATED AUTHOR AUTHOR'S ORGANIZ ATION 10/04/2022 [facility] DATE CREATED AUTHOR AUTHOR'S ORGANIZ ATION 08/15/2024 [facility] Care Teams (unrecognized sec tion and content) Team Status: Active Member Role Status Dates Juan Carlos Robert JR DO Primary Care Provider Active Team Status: Inactive Member Role Status Dates Kevin Rizzo MD Attending Provider Active S tart: April 29, 2024 End: April 29mansi Robert JR DOPriatmore community hospital Care ProviderActiveStart: April 29, 2024 End: April 29, 2024 Team Status: Inactive Member Role Status Dates Juan Carlos Robert JR DO Primary Care Provider Active Start: May 06, 2024 End: May 06, 2024Edwin Manuel ProviderActiveStart: May 06, 2024 End: May 06, 2024 Team Status: Inactive Member Role Status Dates Juan Carlos Robert JR DO Primary Care Provider Active Start: May 20, 2024 End: May 20, 2024Raymond Manuelending ProviderActiveStart: May 20, 2024 End: May 20, 2024 Team Status: Inactive Member Role Status Dates Juan Carlos Robert JR DO Primary Care Provider Active Start: June 28, 2024 End: June 28, 2024Edwin Manuel ProviderActiveStart: June 28, 2024 End: June 28, 2024 Team Status: Inactive Member Role Status Dates Juan Carlos Robert JR DO Primary Care Provider Active Start: August 02, 2024 End: August 02, 2024Edwin Manuel ProviderActiveStart: August 02, 2024 End: August 02, 2024 Team Status: Inactive Member Role Status Dates Juan Carlos Robert JR DO Primary Care Provider Active Start: August 06, 2024 End: August 06, 2024Edwin Manuel ProviderActiveStart: August 06, 2024 End: August 06, 2024 Team Status: Inactive Member Role Status Dates Juan Carlos Robert JR DO Primary Care Provider Active Start: August 19, 2024 End: August 19, 2024Raymond Manuelending ProviderActiveStart: August 19, 2024 End: August 19, 2024 Goals (unrecognized section and content) Goals may be documented in a n alternate sectionGoals may be documented in an alternate sectionGoals may be documented in an alternate sectionGoals may be documented in an [...] BE BASED ON THE PRIMARY CLINICAL RECORDS. [facility] [employer] [facility]. provides no warranty or guarantee of the accuracy or completeness of information in this document.
== END 2025-06-30 09:55 | disposition home or self-care (01) ==
LOC: MAMMO 09:54
PROVIDERS: PCP Internal Medicine; Visit Provider Internal Medicine
DX: Z12.31 Encounter for screening mammogram for malignant neoplasm of breast (principal); Z78.0 Asymptomatic menopausal state
CPT/HCPCS: 77063; 77067; 77080